=== PATIENT | female | born 1945 | race Caucasian/White ===

== ENCOUNTER 2022-07-22 10:38 | Emergency (ER) | payer MEDICARE ==
[~2022-07-22] VITALS: Ht 162.6 cm; Wt 88.0 kg
[2022-07-22 10:46] VITALS: O2SAT 98
[2022-07-22] MEDS ORDERED: KETOROLAC TROMETHAMINE 30 MG/ML VIAL IM STA (10:55)
[2022-07-22] MEDS ORDERED: KETOROLAC TROMETHAMINE 30 MG/ML VIAL ONE (10:59)
[2022-07-22] MEDS ORDERED: DIAZEPAM 2 MG TAB ONE (10:59)
[2022-07-22] MEDS ORDERED: DIAZEPAM 2 MG TAB PO ONE (11:00)
[2022-07-22] MEDS ORDERED: VALIUM2 MG PO (12:17)
[2022-07-26] MEDS ORDERED: BUPIVACAINE HCL 0.5% INJ 30 ML VIAL INJ ONE (06:23)
== END 2022-07-22 12:12 | disposition home or self-care (01) ==
LOC: ER 10:44
DX: G44.209 Tension-type headache, unspecified, not intractable (principal); M62.838 Other muscle spasm; I10 Essential (primary) hypertension; F41.9 Anxiety disorder, unspecified; Z79.899 Other long term (current) drug therapy
CPT/HCPCS: 99282; J1885

== ENCOUNTER 2022-12-07 12:22 | Outpatient (RCR) | payer MEDICARE ==
[~2022-12-07 12:22] MED LIST: VALIUM2 MG PO
== END 2022-12-07 12:23 | disposition home or self-care (01) ==
LOC: PT 12:22
PROVIDERS: ATTEND Physician Assistant
DX: M25.562 Pain in left knee (principal)